=== PATIENT | male | born 1985 | race Caucasian/White ===

== ENCOUNTER → 2019-06-27 | Outpatient (CLI) | payer OTHER | END | disposition home or self-care (01) | LOC: OIH 09:33 | PROVIDERS: ATTEND Family Medicine | DX: T84.013A Broken internal left knee prosthesis, initial encounter (principal); S39.92XS Unspecified injury of lower back, sequela; M17.11 Unilateral primary osteoarthritis, right knee; M06.9 Rheumatoid arthritis, unspecified; E11.618 Type 2 diabetes mellitus with other diabetic arthropathy; Y93.89 Activity, other specified; Y92.89 Other specified places as the place of occurrence of the external cause; Y99.8 Other external cause status | CPT/HCPCS: 72100; 73560 ==